=== PATIENT | female | born 1990 | race Caucasian/White ===

== ENCOUNTER 2018-06-06 11:51 | Observation (INO) | payer MEDICAID ==
[~2018-06-06] VITALS: Ht 162.6 cm; Wt 73.0 kg
[2018-06-06] MEDS ORDERED: PREN-118 MT (13:12)
[2018-06-06] MEDS ORDERED: LACTATED RINGERS 1,000 ML IV STA ×2 (13:13→13:30)
[2018-06-06 13:28] LABS: CLARITY URINE CLEAR (CLEAR); COLOR URINE YELLOW (YELLOW); KETONES URINE NEGATIVE (NEGATIVE); LEUKOCYTE ESTERASE URINE TRACE (NEGATIVE); NITRITE URINE POSITIVE (NEGATIVE); OCCULT BLOOD URINE NEGATIVE (NEGATIVE); PH URINE 7.5 (4.5-8.0); PROTEIN URINE NEGATIVE (NEGATIVE); SPECIFIC GRAVITY URINE 1.011 (1.005-1.030); UROBILINOGEN URINE 0.2 E.U./dL (0.2-1.0)
[2018-06-06] MEDS ORDERED: CEFAZOLIN 2,000 MG in DEXT 5% WATER 100 ML IV NR (15:00)
== END 2018-06-06 15:23 | disposition home or self-care (01) ==
LOC: ER 12:07 → 8 EST LDRP 12:10
PROVIDERS: ADMIT Obstetrics & Gynecology; ATTEND Obstetrics & Gynecology
DX: O26.893 Other specified pregnancy related conditions, third trimester (principal); M54.5 Low back pain; M79.651 Pain in right thigh; Z3A.33 33 weeks gestation of pregnancy
CPT/HCPCS: 81003; 96365; 99281; G0378; J0690; J7060; 96360; 96361

== ENCOUNTER 2020-05-14 00:50 | Emergency (ER) | payer MEDICAID ==
[~2020-05-14] VITALS: Ht 165.1 cm; Wt 69.0 kg
[~2020-05-14 00:50] MED LIST: PREN-118 MT
[2020-05-14] MEDS ORDERED: CEPH250C2 PO (02:12)
[2020-05-14] MEDS ORDERED: ACETAMINOPHEN 325MG TABLET PO ONE (02:15)
[2020-05-14] MEDS ORDERED: CEPHALEXIN 250MG CAPSULE PO ONE (02:15)
[2020-05-14 03:08] VITALS: BP 108/60
== END 2020-05-14 03:16 | disposition home or self-care (01) ==
LOC: ER 00:50
DX: L03.113 Cellulitis of right upper limb (principal); Z98.890 Other specified postprocedural states
CPT/HCPCS: 99283

== ENCOUNTER 2023-08-25 18:23 | Emergency (ER) | payer MEDICAID, OTHER ==
[~2023-08-25] VITALS: Ht 160 cm; Wt 60.0 kg
[~2023-08-25 18:23] MED LIST changes: +CEPH250C2 PO
[2023-08-25 18:35] VITALS: O2SAT 100
[2023-08-25] MEDS ORDERED: DIPH25CA83 MT (20:29)
[2023-08-25] MEDS: DIPHENHYDRAMINE 25MG CAPSULE PO ONE (20:37)
[2023-08-25 20:39] VITALS: BP 120/77; PULSE 66; RESP 18; TEMP 98.1
== END 2023-08-25 20:43 | disposition home or self-care (01) ==
LOC: ER 18:23
DX: T78.40XA Allergy, unspecified, initial encounter (principal); L50.9 Urticaria, unspecified; X58.XXXA Exposure to other specified factors, initial encounter
CPT/HCPCS: 99282; Q0163